=== PATIENT | male | born 1970 | race Caucasian/White ===

== ENCOUNTER 2021-08-05 12:22 | Inpatient (IN) | payer MEDICAID ==
[2021-08-05] VITALS (11 sets, daily range): BP systolic 86–151
[~2021-08-05] VITALS: Ht 165.1 cm; Wt 57.2 kg
--- NOTE | 2021-08-05 12:25 | NUR ---
Placed in room 06 . Placed on mineral wool insulation supervisor, blood pressure machine and pulse oximeter. To gown for exam. Side rails up.
--- NOTE | 2021-08-05 12:28 | NUR ---
ER at bedside examining patient.
--- NOTE | 2021-08-05 12:30 | NUR ---
RT at bedside.
--- NOTE | 2021-08-05 12:43 | NUR ---
Chest X-Ray being done at bedside.
[2021-08-05] MEDS ORDERED: LORazepam 2 MG/ML VIAL IM ONE (12:45)
--- NOTE | 2021-08-05 12:56 | NUR ---
Ativan 1mg given IM left deltoid using aseptic technique. Pt is restless and agitated moving arms.
--- NOTE | 2021-08-05 13:21 | NUR ---
Covid swab and MRSA swab sent to lab.
--- NOTE | 2021-08-05 13:22 | NUR ---
# 24 gauge angiocath placed to left hand. Use of asceptic technique. Opsite placed over site. Blood return noted. Blood for lab drawn from site. Flushed with 10 cc of normal saline. No evidence of infiltration noted. Patient tolerated well.
--- NOTE | 2021-08-05 13:29 | NUR ---
Pt still restless and agitated. 2mg IV ativan given. 5ml NS flushed. No infiltration noted.
[2021-08-05] MEDS ORDERED: LORazepam 2 MG/ML VIAL IVP ONE (13:30)
[2021-08-05 13:31] LABS: BASOPHILS % (AUTO) 0.2 % (0.0-2.0); EOSINOPHILS % (AUTO) 0.3 % (0.0-4.0); HEMATOCRIT 33.1 % (36-54); HEMOGLOBIN 10.9 g/dL (14.0-18.0); LYMPHOCYTES # (AUTO) 0.6 K/uL (1.0-5.5); LYMPHOCYTES % (AUTO) 3.5 % (20.5-51.5); MEAN CORPUSCULAR HEMOGLOBIN 29 pg (27-31); MEAN CORPUSCULAR HGB CONC 33 % (32-36); MEAN CORPUSCULAR VOLUME 89 fL (79.0-98.0); MONOCYTES # (AUTO) 1.3 K/uL (0.0-1.0); MONOCYTES % (AUTO) 7.6 % (1.7-9.3); NEUTROPHILS # (AUTO) 15.1 K/uL (1.8-7.7); NEUTROPHILS % (AUTO) 88.4 % (40.0-70.0); PLATELET COUNT (AUTO) 470 K/uL (130-430); RED BLOOD CELL COUNT(AUTO) 3.73 MIL/uL (4.2-6.2); RED CELL DISTRIBUTION WIDTH 21.5 % (9.0-15.0); WHITE BLOOD COUNT (AUTO) 17.1 K/uL (4.8-10.8)
--- NOTE | 2021-08-05 13:39 | NUR ---
EKG performed at BS. Physician given copy of EKG for review.
[2021-08-05] MEDS ORDERED: VANCOMYCIN HCL 1,000 MG in NS 250 ML IV ONE (13:45)
[2021-08-05] MEDS ORDERED: PIPERACILLIN/TAZO 3.375 GM in NS 50 ML IV ONE (13:45)
[2021-08-05 13:53] LABS: ANION GAP 8 (5-15); CALCIUM 8.7 mg/dL (8.4-11.0); CHLORIDE 96 mmol/L (98-107); CREATININE 1.16 mg/dL (0.55-1.30); GLUCOSE 147 mg/dL (70-99); POTASSIUM 4.8 mmol/L (3.5-5.1); SODIUM SERUM 135 mmol/L (136-145); UREA NITROGEN, BLOOD 36 mg/dL (8-21)
[2021-08-05 13:56] LABS: GFR AFRICAN AMERICAN 86 mL/min (>90)
[2021-08-05] MEDS ORDERED: HEPA500015 SUBCUT (13:56)
[2021-08-05] MEDS ORDERED: ASCO500T20 GT (13:56)
[2021-08-05] MEDS ORDERED: POLY17PO44 PO (13:56)
[2021-08-05] MEDS ORDERED: DOCU-144 GT (13:56)
[2021-08-05] MEDS ORDERED: ONDA4TAB55 PO (13:56)
[2021-08-05] MEDS ORDERED: MIDO5TAB4 GT (13:56)
[2021-08-05] MEDS ORDERED: LANS30CA53 GT (13:56)
[2021-08-05] MEDS ORDERED: ACET325T53 GT (13:56)
[2021-08-05] MEDS ORDERED: SER25 GT (13:56)
[2021-08-05] MEDS ORDERED: LORA-258 GT (13:56)
[2021-08-05] MEDS ORDERED: PHEN60TA11 GT (13:56)
--- NOTE | 2021-08-05 13:56 | NUR ---
Medication reconciliation completed with information provided by snf. Any prior medication reconciliation on file was reviewed and corrected.
[2021-08-05 13:59] LABS: ALANINE AMINOTRANSFERASE 57 U/L (12-78); ALBUMIN 2.9 g/dL (3.4-4.8); ASPARTATE AMINOTRANSFERASE 52 U/L (10-37); TOTAL BILIRUBIN 0.2 mg/dL (0.0-1.0)
[2021-08-05] MEDS ORDERED: PIPERACILLIN/TAZOBACTAM 3.375 GM/VIAL (ZOSYN) IV ONE (13:59)
[2021-08-05] MEDS ORDERED: VANCOMYCIN HCL 1000 MG/VIAL IV ONE (13:59)
[2021-08-05] MEDS ORDERED: NACL 0.9% 2,000 ML IV ONE (15:00)
--- NOTE | 2021-08-05 15:14 | NUR ---
Urine collected and sent to lab.
--- NOTE | 2021-08-05 15:22 | NUR ---
Admit bed requested Patient will be admitted to care of . Admitted to ICU unit. Diagnosis Sepsis Inpatient (Yes or No) Yes Observation (Yes or No) No Orientation concerns or request close to nursing station (Yes or No) No Covid Status Negative On vent or bipap Yes Isolation requirements No Needs a sitter No From Home (Yes or if No enter name of facility) No. [facility] Requires Dialysis (Yes or No) No Med Rec Completed (Yes of No) Yes
[2021-08-05 15:32] LABS: BILIRUBIN,URINE NEGATIVE (NEGATIVE); BLOOD, URINE 3+ (NEGATIVE); COLOR,URINE YELLOW (YELLOW); GLUCOSE,URINE NEGATIVE (NEGATIVE); KETONES,URINE NEGATIVE (NEGATIVE); LEUKOCYTE ESTERASE ,URINE 3+ (NEGATIVE); NITRITE, URINE POSITIVE (NEGATIVE); PH,URINE 8.5 (5.0-8.0); PROTEIN URINE 2+ (NEGATIVE); UROBILINOGEN,URINE 0.2 (0.2-1.0)
[2021-08-05 15:40] LABS: CLARITY/URINE HAZY (CLEAR)
[2021-08-05 15:46] LABS: BACTERIA,URINE MODERATE /HPF (None Seen); RBC,URINE 50-80 /HPF (0-3); TRIPLE PHOSPHATE CRYSTAL,UR 0-10 /HPF (None Seen); WBC,URINE >100 /HPF (0-3)
[2021-08-05 15:47] LABS: MUCUS,URINE None Seen /LPF (None Seen)
--- NOTE | 2021-08-05 17:47 | NUR ---
PT admitted to ICU room 8 from ER bedside report received from Kate RN, pt eyes open but unable to follow command moves upper extremities, but lower extremities contacted, chronic peg, trach oxygenation vent to trach, non verbal, PRVC RATE 12 TV 400, PEEP 6 FIO2 60% shortness fo breadth noted PEG clamped linda to gravity cloudy yellow urine will continue to monitor and treat as per care plan.
--- NOTE | 2021-08-05 17:53 | NUR ---
Patient will be admitted to care of Dr. Morris. Admitted to ICU unit. Will go to room 8. Belongings list completed. Complete and up to date summary report printed. SBAR report to be given at bedside with opportunity for questions.
[2021-08-05] MEDS: PIPERACILLIN/TAZO 3.375/DEX-IS 50 ML IV SCH ×2 (18:00→23:58)
--- NOTE | 2021-08-05 19:15 | NUR ---
@1802 pt hard stick for IV access attempted 4 times by different RN so order received from Dr Morris and telephone consent received from pt's family LUCA URIAS witnessed by two RNS, And if there is no available PICC line RN to call Dr VERNON to insert central line
--- NOTE | 2021-08-05 19:15 | NUR ---
Change of shift report at the bedside to Bret RN mentioned to him several efforts to place IV access but unsuccessful Dr Parikh aware order received as at this time pt's vitals stable, awake tolerating oxygenation via trach to ventilator well O2 sat 100% no agitation multiple wounds no picture taken yet and Bret RN verbalized understanding and will follow up
--- NOTE | 2021-08-05 19:30 | NUR ---
Opening note Received report and assumed care. Vent to trach in place tolerating settings AC 12 TV 400 fio2 60% peep 6+. No signs of respiratory distress but noted patient awake and restless. Attempting to grab vent tubes; generalized weakness noted and contraction of BL LE noted. Requires total assist for turning. Able to track and make eye contact. Occasional cough noted requiring endotracheal suction. no IV access noted and previous attempts to place line unsuccessful. will continue to monitor.
--- NOTE | 2021-08-05 21:35 | NUR ---
new attempt to place IV line unsuccessful. Attempts x3. Notification from nursing supervisor spring up received that Abel Picc line nurse will make attempt to place picc line when available kayce.
--- NOTE | 2021-08-05 21:45 | NUR ---
CONSULTATION PAGED/CALLED Reason for Consultation: SEPSIS Person Who was Notified: JOSE Consulting Physician: DR. Bj VILA Maternal Fetal Physician Specialty: ID Ordering Physician: DR. CLARK Reason for Consultation: SEPSIS Person Who was Notified: JOSE Consulting Physician: DR. RILEY Maternal Fetal Physician Specialty: PULMONOLOGY Ordering Physician: DR. CLARK
--- NOTE | 2021-08-05 22:02 | NUR ---
DR. Bj VILA MD CALLED BACK REGARDING PT CONSULT AT THIS TIME. MD MADE AWARE THAT WE ARE UNABLE TO GAIN IV ACCESS AT THIS TIME AND ARE WAITING ON PICC LINE NURSE FOR ACCESS. PER MD CHANGE IV ANTIBIOTICS TO LEVAQUIN 500 MG PO DAILY AND ZYVOX 600 MG PO Q12H UNTIL ACCESS IS OBTAINED. WILL CARRY OUT ORDERED.
[2021-08-05] MEDS ORDERED: levoFLOXacin 500 MG TABLET PO SCH (22:15)
[2021-08-05] MEDS ORDERED: levoFLOXacin 250 MG TABLET ONE (23:38)
[2021-08-05] MEDS ORDERED: LINEZOLID 600 MG TABLET ONE (23:39)
[2021-08-05] MEDS: LINEZOLID 600 MG TABLET PO SCH (23:58)
[2021-08-06] VITALS (34 sets, daily range): BP systolic 85–106
--- NOTE | 2021-08-06 02:00 | NUR ---
Abel Picc line nurse at bedside for Picc line placement. Consent verified and time out completed.
[2021-08-06] MEDS: VANCOMYCIN HCL 750 MG in NS 250 ML IV SCH ×2 (05:42→14:02)
[2021-08-06] MEDS: PIPERACILLIN/TAZO 3.375/DEX-IS 50 ML IV SCH ×4 (06:51→23:49)
--- NOTE | 2021-08-06 07:30 | NUR ---
RT NOTES 0730 Increased rate to 16 per MD Umesh murillo in 1 hour. Titrated fio2 to 50%. will monitor pt.
[2021-08-06] MEDS: PANTOPRAZOLE SODIUM 40 MG/VIAL (PROTONIX) IVP SCH (09:19)
[2021-08-06] MEDS: LINEZOLID 600 MG TABLET PO SCH (09:19)
[2021-08-06 09:42] LABS: CALCIUM 8.4 mg/dL (8.4-11.0); CREATININE 0.85 mg/dL (0.55-1.30); POTASSIUM 3.9 mmol/L (3.5-5.1)
[2021-08-06 09:45] LABS: INR 1.1 (0.80-1.20); PROTHROMBIN TIME 11.9 SECS (9.5-12.5)
[2021-08-06 09:49] LABS: ALBUMIN 2.3 g/dL (3.4-4.8); TOTAL BILIRUBIN 0.2 mg/dL (0.0-1.0)
--- NOTE | 2021-08-06 09:49 | NUR ---
Dietitian Recommendations * Vital AF 1.2 at 55 ml/hr (goal rate), Umer BID, Free Water Flush: 150 ml Q6h via GT Provides: 1764 kcal/day, 104 gm protein/day, and 1671 ml free water/day Meets: 112% of estimated caloric needs, 90% of upper end of estimated protein needs, and 104% of estimated fluid needs LP, RD Please refer to Nutrition Assessment for details. Addendum: 08/06/21 at [address] Amended: Links added.
[2021-08-06 09:50] LABS: BASOPHILS % (AUTO) 0.2 % (0.0-2.0); EOSINOPHILS # (AUTO) 0.2 K/uL (0.0-0.4); EOSINOPHILS % (AUTO) 1.8 % (0.0-4.0); HEMATOCRIT 27.2 % (36-54); HEMOGLOBIN 9.1 g/dL (14.0-18.0); LYMPHOCYTES # (AUTO) 0.6 K/uL (1.0-5.5); LYMPHOCYTES % (AUTO) 6.6 % (20.5-51.5); MEAN CORPUSCULAR HEMOGLOBIN 30 pg (27-31); MEAN CORPUSCULAR HGB CONC 33 % (32-36); MEAN CORPUSCULAR VOLUME 89 fL (79.0-98.0); MONOCYTES % (AUTO) 10.1 % (1.7-9.3); NEUTROPHILS # (AUTO) 7.8 K/uL (1.8-7.7); NEUTROPHILS % (AUTO) 81.3 % (40.0-70.0); PLATELET COUNT (AUTO) 323 K/uL (130-430); RED BLOOD CELL COUNT(AUTO) 3.07 MIL/uL (4.2-6.2); RED CELL DISTRIBUTION WIDTH 21.8 % (9.0-15.0); WHITE BLOOD COUNT (AUTO) 9.6 K/uL (4.8-10.8)
--- NOTE | 2021-08-06 09:56 | NUR ---
PT WITH BP 88/[address] CLARK TO UPDATE AND ORDERS FOR BOLUS AND MAINTENANCE IVF. WAITING FOR CALL BACK. CONT ON VENTILATOR AC 50/6/16/400 WITH O2 SAT 100%. RR 18-20, PT BREATHING OVER THE VENT. ABG WITH CO2 69.8 AND RT CHANGE VENT SETTING FOR RR 12 TO 16. PT ALREADY BREATHING OVER VENT. PAGED DR. RILEY BUT NO CALL BACK SO FAR. REPAGED DR. RILEY, WAITING FOR CALL BACK.
--- NOTE | 2021-08-06 10:10 | NUR ---
SPOKE WITH DR. RILEY, UPDATED ON PT STATUS. NEW ORDER TO INCREASE TV TO 450. WILL NOTIFY RT.
--- NOTE | 2021-08-06 10:20 | NUR ---
rt notes 1020 Per ABG results, Dr. Calvo ordered VT increased to 450ml and decreased fio2 to 40%, carried out by CYNDI Delacruz.
--- NOTE | 2021-08-06 10:39 | NUR ---
H&P SHOWED PT ON MIDODRINE. PT BP 97/67 MAP79. NO CALL BACK YET BY DR. CLARK. PT WITH PROB HX OF HYPOTENSION BEING ON MIDODRINE. PT'S MAP STABLE AT THIS TIME. WILL PAGE DR. CLARK AGAIN.
--- NOTE | 2021-08-06 11:16 | NUR ---
RT NOTES 1116 TITRATED FIO2 TO 30%. WILL MONITOR PT.
[2021-08-06] MEDS: NACL 0.9% 1,000 ML IV SCH (14:03)
[2021-08-06] MEDS: MIDODRINE HCL 5 MG TABLET (PROAMATINE) GT SCH ×2 (15:00→22:09)
--- NOTE | 2021-08-06 17:40 | NUR ---
PT TOLERATING TUBE FEEDING AT 55ML/HR WITH NO RESIDUAL.
[2021-08-06] MEDS ORDERED: levoFLOXacin 500 MG TABLET PO SCH (21:00)
[2021-08-06] MEDS: PHENobarbital 30 MG TABLET GT SCH (22:09)
[2021-08-06] MEDS: DOCUSATE SODIUM 100 MG CAPSULE PO SCH (22:10)
[2021-08-06] MEDS: QUEtiapine FUMARATE 25 MG TABLET GT SCH (22:10)
[2021-08-06] MEDS: POLYETHYLENE GLYCOL 3350, 17 GM/ POWD.PACK PO SCH (22:11)
[2021-08-06] MEDS: HEPARIN SODIUM,PORCINE 5,000 UNITS/ML VIAL SUBCUT SCH (22:13)
[2021-08-07] VITALS (36 sets, daily range): BP systolic 83–132
[2021-08-07] MEDS: VANCOMYCIN HCL 750 MG in NS 250 ML IV SCH ×2 (04:31→15:54)
[2021-08-07] MEDS: NACL 0.9% 1,000 ML IV SCH ×2 (05:23→22:38)
[2021-08-07] MEDS: PIPERACILLIN/TAZO 3.375/DEX-IS 50 ML IV SCH ×4 (06:11→23:16)
[2021-08-07] MEDS: LANSOPRAZOLE 30 MG CAPSULE.DR GT SCH (06:11)
[2021-08-07 06:58] LABS: BASOPHILS % (AUTO) 0.1 % (0.0-2.0); EOSINOPHILS # (AUTO) 0.5 K/uL (0.0-0.4); EOSINOPHILS % (AUTO) 6.9 % (0.0-4.0); HEMATOCRIT 25.7 % (36-54); HEMOGLOBIN 8.4 g/dL (14.0-18.0); LYMPHOCYTES # (AUTO) 0.8 K/uL (1.0-5.5); LYMPHOCYTES % (AUTO) 11.6 % (20.5-51.5); MEAN CORPUSCULAR HEMOGLOBIN 29 pg (27-31); MEAN CORPUSCULAR HGB CONC 33 % (32-36); MEAN CORPUSCULAR VOLUME 89 fL (79.0-98.0); MONOCYTES # (AUTO) 0.8 K/uL (0.0-1.0); MONOCYTES % (AUTO) 11.5 % (1.7-9.3); NEUTROPHILS % (AUTO) 69.9 % (40.0-70.0); PLATELET COUNT (AUTO) 298 K/uL (130-430); RED BLOOD CELL COUNT(AUTO) 2.88 MIL/uL (4.2-6.2); RED CELL DISTRIBUTION WIDTH 21.1 % (9.0-15.0); WHITE BLOOD COUNT (AUTO) 7.1 K/uL (4.8-10.8)
--- NOTE | 2021-08-07 07:30 | NUR ---
RECEIVED PT FROM CYNDI FERRERA. ASSUMED ALL CARE.
[2021-08-07 07:32] LABS: CALCIUM 8.4 mg/dL (8.4-11.0); CREATININE 0.71 mg/dL (0.55-1.30); POTASSIUM 3.3 mmol/L (3.5-5.1)
[2021-08-07] MEDS: MICAFUNGIN SODIUM 100 MG in NS 100 ML IV SCH (10:32)
[2021-08-07] MEDS: PANTOPRAZOLE SODIUM 40 MG/VIAL (PROTONIX) IVP SCH (10:32)
[2021-08-07] MEDS: DOCUSATE SODIUM 100 MG CAPSULE PO SCH ×2 (10:33→20:20)
[2021-08-07] MEDS: QUEtiapine FUMARATE 25 MG TABLET GT SCH ×2 (10:33→20:20)
[2021-08-07] MEDS: PHENobarbital 30 MG TABLET GT SCH ×2 (10:34→20:20)
[2021-08-07] MEDS: MIDODRINE HCL 5 MG TABLET (PROAMATINE) GT SCH ×3 (10:35→20:20)
[2021-08-07] MEDS: POLYETHYLENE GLYCOL 3350, 17 GM/ POWD.PACK PO SCH ×2 (10:36→20:20)
[2021-08-07] MEDS: HEPARIN SODIUM,PORCINE 5,000 UNITS/ML VIAL SUBCUT SCH ×2 (10:36→20:24)
[2021-08-07] MEDS ORDERED: NALOXONE HCL 0.4 MG/ML AMP (NARCAN) IVP PRN (14:00)
[2021-08-07] MEDS ORDERED: KCL 20 mEq in 100 mL (PREMIX) 100 ML IV ONE (14:00)
--- NOTE | 2021-08-07 14:00 | NUR ---
REPORTED TO DR. CLARK, PT HR IN 120S AND APPEARS UNCOMFORTABLE, K+= 3.3. RECEIVED ORDER FOR MORPHINE 1MG IVP Q PRN, KCL 20MEQ IV X1 NOW. ORDERS CARRIED OUT.
[2021-08-07] MEDS: MORPHINE 2 MG/ML INJ. SYRINGE IVP PRN (14:46)
--- NOTE | 2021-08-07 15:43 | NUR ---
PAGED DR. VILA TO REPORT BLOOD CX AND URINE CX RESULTS, AWAITING CALL BACK.
--- NOTE | 2021-08-07 16:29 | NUR ---
REPORTED TO DR. VILA PT'S BLOOD CX POSITIVE GM - RODS, URINE CX POSITIVE PROTEUS MIRABILIS MDRO SENTIVE TO ZOSYN. DR. VILA STATED OKAY PT IS ON ZOSYN, NNOS.
--- NOTE | 2021-08-07 16:30 | NUR ---
MORPHINE 1MG IVP GIVEN FOR PAIN, KCL IVPB GIVEN FOR k= 3.3.
--- NOTE | 2021-08-07 19:15 | NUR ---
OPENING NOTES: RECEIVED BEDSIDE REPORT FROM ANDERSON, PATIENT IS AWAKE AND MOVING AROUND. PATIENT CAME FROM [facility] WITH ACUTE HYPOXIA WITH VENT PROBLEMS. PATIENT HAS SKIN ISSUES, TORN PENIS FROM ODOM, LEFT AND RIGHT HIP, AND SACRAL WOUNDS, COVERED WITH FOAM DRESSINGS, HAVE A WOUND CONSULT IN BUT NO ONE HAS COME. PATIENT IS CONTRACTED. PATIENT HAS A G-TUBE WITH VITAL AF 1.2, WITH FWF 150 Q6. TRACH TO VENT 16, 450, 30%, 6. PATIENT HAS A ODOM THIS IS DRAINING TO GRAVITY. PATIENT HAS A NHI MIDLINE THAT HAS NS RUNNING AT 160. BED IS AT THE LOWEST LEVEL, BRAKES ARE LOCKED, CALL LIGHT IS WITHIN REACH, APPROPRIATE SIDE RAILS UP, AND SUCTION WORKING.
--- NOTE | 2021-08-07 19:35 | NUR ---
ENDORSED ALL CARE TO CYNDI WEAVER, ALL QUESTIONS AND CONCERNS ADDRESSED.
[2021-08-08] VITALS (35 sets, daily range): BP systolic 89–147
[2021-08-08] MEDS: VANCOMYCIN HCL 750 MG in NS 250 ML IV SCH ×2 (02:54→14:22)
[2021-08-08] MEDS: PIPERACILLIN/TAZO 3.375/DEX-IS 50 ML IV SCH ×4 (05:08→23:58)
[2021-08-08] MEDS: MICAFUNGIN SODIUM 100 MG in NS 100 ML IV SCH (06:35)
[2021-08-08] MEDS: LANSOPRAZOLE 30 MG CAPSULE.DR GT SCH (06:35)
[2021-08-08 06:52] LABS: BASOPHILS % (AUTO) 0.3 % (0.0-2.0); EOSINOPHILS # (AUTO) 0.5 K/uL (0.0-0.4); EOSINOPHILS % (AUTO) 10.5 % (0.0-4.0); HEMATOCRIT 24.6 % (36-54); LYMPHOCYTES # (AUTO) 0.9 K/uL (1.0-5.5); LYMPHOCYTES % (AUTO) 17.6 % (20.5-51.5); MEAN CORPUSCULAR HEMOGLOBIN 29 pg (27-31); MEAN CORPUSCULAR HGB CONC 33 % (32-36); MEAN CORPUSCULAR VOLUME 89 fL (79.0-98.0); MONOCYTES # (AUTO) 0.5 K/uL (0.0-1.0); MONOCYTES % (AUTO) 9.3 % (1.7-9.3); NEUTROPHILS # (AUTO) 3.2 K/uL (1.8-7.7); NEUTROPHILS % (AUTO) 62.3 % (40.0-70.0); PLATELET COUNT (AUTO) 334 K/uL (130-430); RED BLOOD CELL COUNT(AUTO) 2.77 MIL/uL (4.2-6.2); RED CELL DISTRIBUTION WIDTH 21.2 % (9.0-15.0); WHITE BLOOD COUNT (AUTO) 5.1 K/uL (4.8-10.8)
[2021-08-08 06:55] LABS: ALBUMIN 2.1 g/dL (3.4-4.8); CALCIUM 8.1 mg/dL (8.4-11.0); CREATININE 0.67 mg/dL (0.55-1.30); POTASSIUM 3.3 mmol/L (3.5-5.1); TOTAL BILIRUBIN 0.1 mg/dL (0.0-1.0)
--- NOTE | 2021-08-08 07:15 | NUR ---
RECEIVED PT FROM CYNDI WEAVER. ASSUMED ALL CARE. PT IS AAOX2, ATTEMPTING TO COMMUNICATE, PULLING AT COLOSTOMY BAG AND TRACH. PT EDUCATED AT THE RISKS OF PULLING AT MEDICAL EQUIPMENT, PT NODDED HEAD TO ACKNOWLEDGE UNDERSTANDING. TELEMONITOR IN PLACE READING SINUS TACH HR 107. PT DENIES PAIN. TRACH IN TO VENT, SETTING AC RR 16, TV 450, PEEP 6 FIO2 30%. RESP E/U. LUNG SOUNDS CTA, O2 SAT 100%. ABDOMEN SOFT, DISTENDED. BOWEL SOUNDS ACTIVE X4 QUADS. GTUBE IN PLACE WITH VITAL AF 1.2 RUNNING AT 55ML/HOUR. ASPIRATION PRECAUTIONS IN PLACE. PT HAS COLOSTOMY SITE TO L ABDOMEN, DRAINING WATERY BROWN STOOL, STOMA BEEFY RED. ODOM CATH IN PLACE DRAINING CLEAR YELLOW URINE TO GRAVITY, STAT LOCK TO LEFT THIGH. NHI PICC LINE IN PLACE 2 LUMENS FLUSHED PATENT WITH NS RUNNING AT 60ML/HOUR. SITE WNL, DRESSING CDI.
[2021-08-08] MEDS: POLYETHYLENE GLYCOL 3350, 17 GM/ POWD.PACK PO SCH ×2 (09:04→20:18)
[2021-08-08] MEDS: QUEtiapine FUMARATE 25 MG TABLET GT SCH ×2 (09:05→20:18)
[2021-08-08] MEDS: DOCUSATE SODIUM 100 MG CAPSULE PO SCH ×2 (09:05→20:06)
[2021-08-08] MEDS: PANTOPRAZOLE SODIUM 40 MG/VIAL (PROTONIX) IVP SCH (09:05)
[2021-08-08] MEDS: PHENobarbital 30 MG TABLET GT SCH ×2 (09:05→20:18)
[2021-08-08] MEDS: HEPARIN SODIUM,PORCINE 5,000 UNITS/ML VIAL SUBCUT SCH ×2 (09:07→20:19)
[2021-08-08] MEDS: MIDODRINE HCL 5 MG TABLET (PROAMATINE) GT SCH ×3 (09:15→20:06)
[2021-08-08] MEDS: NACL 0.9% 1,000 ML IV SCH (14:23)
[2021-08-08] MEDS ORDERED: KCL 20 mEq in 100 mL (PREMIX) 100 ML IV ONE (18:30)
--- NOTE | 2021-08-08 19:05 | NUR ---
OPENING NOTES: RECEIVED BEDSIDE REPORT FROM ANDERSON, PATIENT IS AWAKE AND MOVING AROUND. PATIENT CAME FROM [facility] WITH ACUTE HYPOXIA WITH VENT PROBLEMS. PATIENT HAS SKIN ISSUES, TORN PENIS FROM ODOM, LEFT AND RIGHT HIP, AND SACRAL WOUNDS, COVERED WITH FOAM DRESSINGS BY ANDERSON AT 1500, HAVE A WOUND CONSULT IN BUT NO ONE HAS COME. PATIENT IS CONTRACTED. PATIENT HAS A G-TUBE WITH VITAL AF 1.2, WITH FWF 150 Q6. TRACH TO VENT 16, 450, 30%, 6. PATIENT HAS A ODOM THIS IS DRAINING TO GRAVITY. PATIENT HAS A NHI MIDLINE THAT HAS NS RUNNING AT 160. BED IS AT THE LOWEST LEVEL, BRAKES ARE LOCKED, CALL LIGHT IS WITHIN REACH, APPROPRIATE SIDE RAILS UP, AND SUCTION WORKING.
--- NOTE | 2021-08-08 19:27 | NUR ---
ENDORSED ALL CARE TO CYNDI WEAVER. ALL QUESTIONS AND CONCERNS ADDRESSED.
--- NOTE | 2021-08-08 19:30 | NUR ---
PATIENT IS AGITATED, TURNING RED, MOVING ALL OVER THE PLACE, CRYING AND GRIMACING. ANDERSON AND Margarita GAVE THE PATIENT PRN MORPHINE FOR PAIN.
[2021-08-08] MEDS: MORPHINE 2 MG/ML INJ. SYRINGE IVP PRN (19:46)
[2021-08-09] VITALS (35 sets, daily range): BP systolic 100–156
[2021-08-09] MEDS: ALPRAZolam 0.25 MG TABLET GT PRN (00:06)
[2021-08-09] MEDS: LANSOPRAZOLE 30 MG CAPSULE.DR GT SCH (06:06)
[2021-08-09] MEDS: PIPERACILLIN/TAZO 3.375/DEX-IS 50 ML IV SCH ×3 (06:06→18:43)
[2021-08-09 06:11] LABS: BASOPHILS % (AUTO) 0.5 % (0.0-2.0); EOSINOPHILS # (AUTO) 0.2 K/uL (0.0-0.4); EOSINOPHILS % (AUTO) 3.6 % (0.0-4.0); HEMATOCRIT 24.8 % (36-54); HEMOGLOBIN 8.1 g/dL (14.0-18.0); LYMPHOCYTES # (AUTO) 1.2 K/uL (1.0-5.5); LYMPHOCYTES % (AUTO) 21.4 % (20.5-51.5); MEAN CORPUSCULAR HEMOGLOBIN 29 pg (27-31); MEAN CORPUSCULAR HGB CONC 33 % (32-36); MEAN CORPUSCULAR VOLUME 89 fL (79.0-98.0); MONOCYTES # (AUTO) 0.6 K/uL (0.0-1.0); MONOCYTES % (AUTO) 11.1 % (1.7-9.3); NEUTROPHILS # (AUTO) 3.5 K/uL (1.8-7.7); NEUTROPHILS % (AUTO) 63.4 % (40.0-70.0); PLATELET COUNT (AUTO) 324 K/uL (130-430); RED CELL DISTRIBUTION WIDTH 20.8 % (9.0-15.0); WHITE BLOOD COUNT (AUTO) 5.5 K/uL (4.8-10.8)
[2021-08-09 06:32] LABS: ALBUMIN 2.2 g/dL (3.4-4.8); CALCIUM 8.6 mg/dL (8.4-11.0); CREATININE 0.65 mg/dL (0.55-1.30); POTASSIUM 3.8 mmol/L (3.5-5.1); TOTAL BILIRUBIN 0.3 mg/dL (0.0-1.0)
[2021-08-09] MEDS: NACL 0.9% 1,000 ML IV SCH (08:25)
[2021-08-09] MEDS: PANTOPRAZOLE SODIUM 40 MG/VIAL (PROTONIX) IVP SCH (08:46)
[2021-08-09] MEDS: MIDODRINE HCL 5 MG TABLET (PROAMATINE) GT SCH ×3 (08:49→20:46)
[2021-08-09] MEDS: HEPARIN SODIUM,PORCINE 5,000 UNITS/ML VIAL SUBCUT SCH ×2 (08:49→20:49)
[2021-08-09] MEDS: QUEtiapine FUMARATE 25 MG TABLET GT SCH ×2 (08:49→20:46)
[2021-08-09] MEDS: DOCUSATE SODIUM 100 MG CAPSULE PO SCH ×2 (08:49→20:46)
[2021-08-09] MEDS: PHENobarbital 30 MG TABLET GT SCH ×2 (08:50→20:46)
[2021-08-09] MEDS: POLYETHYLENE GLYCOL 3350, 17 GM/ POWD.PACK PO SCH ×2 (08:50→20:47)
--- NOTE | 2021-08-09 14:50 | NUR ---
Nutritional F/U Admitting Diagnosis Sepsis Reviewed Pertinent Medical/Surgical Hx Medical Record Patient Other Medical History Comment: PMH: chronic respiratory failure and vent dependent s/p trach, CKD, [employer] coccidiomycosis, DM, epilepsy, osteomyelitis, s/p cardiac pacemaker, + colostomy bag, aphasia, WHEEL BRAIDER shunt, s/p PEG, per physician notes. SARS-CoV-2 Ag (Rapid) Negative 08/[address] attended ICU rounds this AM. Per primary RN, pt is tolerating TF, continues vent to trach; pt is difficult to turn d/t contractures, pt came in w/ multiple PIs as a result; pt also has a split in his penis d/t snf linda use. RD reminded RN to provide Umer as ordered. Per EMR review, Dylan score 10 - wounds to lower scrotum, distal penis, Lateral L. hip, Lateral R. hip; BLE non-pitting edema; abd is soft and non-distended w/ active bowel sounds; 100 ml stool output 08/06; TF formula Vital AF 1.2 08/09; TF rate 55 ml/hr via GT 08/09; GRV: 0-5 ml 08/09; vent to trach, Ve: 7.8; Tmax: 98.8F. Current TF is warranted and appropriate. Current Diet Order/Nutrition Support Vital AF at 55 ml/hr (goal rate), Umer BID, FWF 150 ml q6h x3 days Patient/Significant Other Unable To Verbalize Education Provided Not Indicated Pertinent Medications protonix, piperacillin/tazobactam, Seroquel, Miralax, heparin Pertinent Labs BUN 14 WNL, Cr 0.65 WNL, BG 78 WNL, Alb 2.2 L Height (Feet) 5 feet Height (Inches) 5.00 inches Weight (Pounds) 126 pounds - Stable since 08/06 Weight (Calculated Kilograms) 57.095618 kilograms Patient Weight 57.153 kg Body Mass Index 20.96 kg/m2 %IBW 93 [place]/Adjusted Body Weight 136#/61.8 kg Recent Weight Change Unable to verify Weight Status Appropriate Food Allergies Unable to verify Usual Diet At Home Fibersource HN at 70 cc/hr x20 hr (1400 cc/1680 kcal/day) Skin Integrity Comment: Dylan scale: 11 w/ wounds noted to lateral L/R hip and lower sacrum *MODIFIED Estimated Energy Expenditure (kcals/day) 1531 (PSU 2002b d/t criticall illness; Ve: 7.8, Tmax: 37.1'C) Estimated Protein Required (g/day) 86-115 (1.5-2 gm/kg CBW d/t sepsis, multiple wounds) Estimated Fluid Required (l/day) 1.6 (1 ml/kcal/day for maintenance) Problem/Etiology/Signs/Symptoms Increased nutritional needs R/T metabolic demands AEB estimated nutritional requirements for sepsis and wound healing. (*ongoing) Expected Outcomes/Goals - Monitor provision of EN support w/ goal of pt meeting >80% of estimated nutritional needs, labs trending WNL, normal GI function, and skin integrity/wt maintenance Dietitian Recommendations * Vital AF 1.2 at 55 ml/hr (goal rate), Umer BID, Free Water Flush: 150 ml Q6h via GT Provides: 1764 kcal/day, 104 gm protein/day, and 1671 ml free water/day Meets: 115% of estimated caloric needs, 90% of upper end of estimated protein needs, and 104% of estimated fluid needs Follow Up High Risk: F/U in 2-3days
--- NOTE | 2021-08-09 14:50 | NUR ---
Dietitian Recommendations * Vital AF 1.2 at 55 ml/hr (goal rate), Umer BID, Free Water Flush: 150 ml Q6h via GT Provides: 1764 kcal/day, 104 gm protein/day, and 1671 ml free water/day Meets: 115% of estimated caloric needs, 90% of upper end of estimated protein needs, and 104% of estimated fluid needs Please refer to Nutrition F/U for details.
--- NOTE | 2021-08-09 19:30 | NUR ---
PM shift Received report from AM nurse using SBAR approach.
[2021-08-10] VITALS (20 sets, daily range): BP systolic 106–153
--- NOTE | 2021-08-10 | NUR ---
Patient is resting in bed. NO signs or symptoms of distress.
--- NOTE | 2021-08-10 01:00 | NUR ---
MD Dr. Kulkarni came in to see patient. answered all questions.
[2021-08-10] MEDS: PIPERACILLIN/TAZO 3.375/DEX-IS 50 ML IV SCH ×4 (03:00→18:54)
[2021-08-10] MEDS: NACL 0.9% 1,000 ML IV SCH ×2 (03:01→18:54)
[2021-08-10] MEDS: LANSOPRAZOLE 30 MG CAPSULE.DR GT SCH (06:49)
[2021-08-10] MEDS: PANTOPRAZOLE SODIUM 40 MG/VIAL (PROTONIX) IVP SCH (08:10)
[2021-08-10] MEDS: MIDODRINE HCL 5 MG TABLET (PROAMATINE) GT SCH ×3 (08:10→20:27)
[2021-08-10] MEDS: POLYETHYLENE GLYCOL 3350, 17 GM/ POWD.PACK PO SCH ×2 (08:10→20:27)
[2021-08-10] MEDS: DOCUSATE SODIUM 100 MG CAPSULE PO SCH ×2 (08:10→21:00)
[2021-08-10] MEDS: QUEtiapine FUMARATE 25 MG TABLET GT SCH ×2 (08:10→20:27)
[2021-08-10] MEDS: PHENobarbital 30 MG TABLET GT SCH ×2 (08:11→20:27)
[2021-08-10] MEDS: HEPARIN SODIUM,PORCINE 5,000 UNITS/ML VIAL SUBCUT SCH ×2 (08:13→20:29)
--- NOTE | 2021-08-10 10:20 | NUR ---
CARE ENDORSED TO RN ARNEL FOR DOWNGRADE TO TELEMETRY. SBAR PROVIDED. ALL QUESTIONS ANSWERED. PT VSS. END OF CARE.
--- NOTE | 2021-08-10 10:21 | NUR ---
Received report from Sivakumar/ICU ER for continuity of care. Pt to transfer to room 123A.
--- NOTE | 2021-08-10 10:40 | NUR ---
RT NOTES 1040 Pt moved to 123A, pt still on same settings PRVC 16,450VT PEEP 6 30% FIO2. Shiley 7 XLT. no distress noted. no incident happend. sxn'd prior/post transfer.
--- NOTE | 2021-08-10 10:45 | NUR ---
Opening Notes Received patient via bed, stable at this time. Pt is awake, alert and oriented x0. Arousable to light stimuli, able to track with eyes, able to follow simple commands. Nonverbal. Mild SOB at rest. Pt remains on trach to vent (AC 16, FiO2 305, TV 450, PEEP 5), noted with yellow thick secretions, suctioned as needed. Oxygen noted at 98%. No signs of pain per FLACC scale. Pt is diaphoretic. BS taken, noted at 96 mg/dL. Temporal temp 97.8 F. MIDLINE noted on NHI, double lumen, C/D/I, blood return noted. NS @ 100 ml/hr, infusing well. PEGTUBE in place, dressing cleaned and changed, 5 ml of residual noted. TF: Vital AF 1.2 @ 55 ml/hr, infusing well. Colostomy bag on left lower abdomen, loose, brown stool. FC draining by gravity, yellow and clear, malodorous, sediments. Pt is also noted with a possible hernia. Will follow up with MD Morris. Soft wrist bilateral wrist restraints noted, no injury noted. No agitation at this time. Contact isolation. Pt is noted with BLE contractures. Pending wound care. All needs met at this time. Safety and fall precautions in place. Bed in lowest position, alarm on, locked. Will continue to monitor. Addendum: 08/10/21 at 1415 by Nemo Flynn RN no blood return noted on MIDLINE
--- NOTE | 2021-08-10 12:00 | NUR ---
Notes/Diaphoretic Patient is diaphoretic. VS WNL. Nurse s/w Dr. Morris and updated on pt status. Obtained new orders for STAT labs, noted and carried out. MD Morris to see patient during rounds for possible hernia. Mild SOB at rest, suctioned as needed. Pt remains on trach to vent (FiO2 30%, TV 450 PEEP 5 16 AC). No signs of pain per FLACC scale. Cooling measures provided. Will continue to monitor.
[2021-08-10] MEDS: ALPRAZolam 0.25 MG TABLET GT PRN (14:54)
[2021-08-10 15:49] LABS: BASOPHILS % (AUTO) 0.3 % (0.0-2.0); EOSINOPHILS # (AUTO) 1.2 K/uL (0.0-0.4); EOSINOPHILS % (AUTO) 11.9 % (0.0-4.0); HEMATOCRIT 31.4 % (36-54); HEMOGLOBIN 10.1 g/dL (14.0-18.0); LYMPHOCYTES # (AUTO) 2.2 K/uL (1.0-5.5); LYMPHOCYTES % (AUTO) 22.6 % (20.5-51.5); MEAN CORPUSCULAR HEMOGLOBIN 29 pg (27-31); MEAN CORPUSCULAR HGB CONC 32 % (32-36); MEAN CORPUSCULAR VOLUME 90 fL (79.0-98.0); MONOCYTES # (AUTO) 0.7 K/uL (0.0-1.0); MONOCYTES % (AUTO) 7.1 % (1.7-9.3); NEUTROPHILS # (AUTO) 5.8 K/uL (1.8-7.7); NEUTROPHILS % (AUTO) 58.1 % (40.0-70.0); PLATELET COUNT (AUTO) 426 K/uL (130-430); RED BLOOD CELL COUNT(AUTO) 3.51 MIL/uL (4.2-6.2); RED CELL DISTRIBUTION WIDTH 21.2 % (9.0-15.0); WHITE BLOOD COUNT (AUTO) 9.9 K/uL (4.8-10.8)
--- NOTE | 2021-08-10 16:00 | NUR ---
Notes Patient is awake, alert and oriented x1. Mild SOB at rest, suctioned as needed. Pt remains on trach to vent, tolerating well. No signs of pain per FLACC scale. Pt colostomy bag is leaking. Pericare provided, linens changed, partial bed bath given. Replaced colostomy bag, C/D/I. All needs met at this time. Ssfety and fall precautions in place. Bed in lowest position, alarm on, locked. Will continue to monitor.
[2021-08-10 16:03] LABS: ANION GAP 10 (5-15); CHLORIDE 104 mmol/L (98-107); GFR AFRICAN AMERICAN 154 mL/min (>90); GLUCOSE 124 mg/dL (70-99); POTASSIUM 3.8 mmol/L (3.5-5.1); SODIUM SERUM 141 mmol/L (136-145); UREA NITROGEN, BLOOD 10 mg/dL (8-21)
[2021-08-10 16:07] LABS: ALANINE AMINOTRANSFERASE 40 U/L (12-78); ALBUMIN 2.7 g/dL (3.4-4.8); ASPARTATE AMINOTRANSFERASE 25 U/L (10-37); C-REACTIVE PROTEIN QUANT 15.1 mg/dL (0-0.5); TOTAL BILIRUBIN < 0.1 mg/dL (0.0-1.0)
[2021-08-10 16:46] LABS: ERYTHROCYTE SEDIMENTATION RATE 95 MM/HR (0-15)
--- NOTE | 2021-08-10 18:55 | NUR ---
Closing Notes Patient is awake, alert and oriented x1. Arousable to light stimuli, able to track with eyes. Nonverbal. No diaphoresis at this time. Mild SOB at rest. Pt remains on trach to vent (AC mode 16, FiO2 30%, TV 450, PEEP 5), noted with thick yellow secretions, suctioned as needed. MID LINE noted on NHI, double lumen, NS @ 100 ml/hr, infusing well. PEGTUBE in place, TF: Vital AF 1.2 @ 55 ml/hr, infusing well. FWF 150 cc. FC draining by gravity, yellow and clear urine. Colostomy bag on LLQ, in place. Replaced dressing earlier in shift. Will endorse to next shift to complete wound care dressing. Contact isolation. All needs met at this time. Safety and fall precautions in place. Bed in lowest position, alarm on, locked. Will continue to monitor.
[2021-08-11] VITALS (9 sets, daily range): BP systolic 110–145
[2021-08-11] MEDS: PIPERACILLIN/TAZO 3.375/DEX-IS 50 ML IV SCH ×4 (00:21→17:26)
--- NOTE | 2021-08-11 02:30 | NUR ---
WOUND CARE Changed wound dressings to bilateral hip and sacral coccyx. Cleansed with NS, pat dry and applied dry dressing. Patient's colostomy was changed as well due to lose of integrity. Patient's needs met and left clean, stable and with no notable distress. Bed in lowest position with bed alarm on and restrains secured.
--- NOTE | 2021-08-11 06:33 | NUR ---
CLOSE NOTE Patient is awake, alert and oriented x1. Arousable to light stimuli, name, able to track with eyes. Nonverbal. No diaphoresis at this time. Patient remains on trach to vent (AC mode 16, FiO2 30%, TV 450, PEEP 6). MID LINE noted on NHI, double lumen, NS @ 60 ml/hr, infusing well. PEGTUBE in place, TF: Vital AF 1.2 @ 55 ml/hr, infusing well. FWF 150 cc. FC draining by gravity, yellow and clear urine. Colostomy bag on LLQ, in place. Wound dressing noted to be intact. Contact isolation due to ESBL of urine. All needs met at this time. Safety and fall precautions in place. Bed in lowest position, alarm on, locked. Will endorse to dayshift.
[2021-08-11 06:42] LABS: BASOPHILS % (AUTO) 0.3 % (0.0-2.0); EOSINOPHILS # (AUTO) 0.6 K/uL (0.0-0.4); HEMATOCRIT 23.6 % (36-54); HEMOGLOBIN 7.8 g/dL (14.0-18.0); LYMPHOCYTES # (AUTO) 1.4 K/uL (1.0-5.5); LYMPHOCYTES % (AUTO) 23.7 % (20.5-51.5); MEAN CORPUSCULAR HEMOGLOBIN 29 pg (27-31); MEAN CORPUSCULAR HGB CONC 33 % (32-36); MEAN CORPUSCULAR VOLUME 88 fL (79.0-98.0); MONOCYTES # (AUTO) 0.5 K/uL (0.0-1.0); MONOCYTES % (AUTO) 8.6 % (1.7-9.3); NEUTROPHILS # (AUTO) 3.3 K/uL (1.8-7.7); NEUTROPHILS % (AUTO) 56.4 % (40.0-70.0); PLATELET COUNT (AUTO) 315 K/uL (130-430); RED BLOOD CELL COUNT(AUTO) 2.68 MIL/uL (4.2-6.2); WHITE BLOOD COUNT (AUTO) 5.8 K/uL (4.8-10.8)
[2021-08-11 06:56] LABS: ALBUMIN 2.1 g/dL (3.4-4.8); CALCIUM 8.1 mg/dL (8.4-11.0); CREATININE 0.62 mg/dL (0.55-1.30); POTASSIUM 3.2 mmol/L (3.5-5.1); TOTAL BILIRUBIN 0.1 mg/dL (0.0-1.0)
--- NOTE | 2021-08-11 08:00 | NUR ---
Opening Note Patient is awake, alert and oriented x0. Arousable to light stimuli, able to track with eyes. Nonverbal. Soft wrist bilateral wrist restraints in place, no injury noted. Mild SOB at ret, HDEZ. Pt remains on trach to vent (AC mode FiO2 305 TV 450 PEEP 5). Suctioned as needed. Pt shows no signs of pain at this time. Afebrile. PICC line noted on NHI, double lumen, NS @ 60 ml/hr, infusing well. PEG TUBE in place, TF: Vital AF 1.2 @ 55 ml/hr, infusing well. 10 cc of residual noted. Colostomy bag in place, loose stool. FC draining by gravity, yellow and clear urine noted. Contact precautions. Pt was repositioned in bed with pillows. All needs met at this time. Safety and fall precautions in place. Bed in lowest position, alarm on, locked. Will continue to monitor.
[2021-08-11] MEDS: DOCUSATE SODIUM 100 MG CAPSULE PO SCH (08:35)
[2021-08-11] MEDS: QUEtiapine FUMARATE 25 MG TABLET GT SCH (08:35)
[2021-08-11] MEDS: PANTOPRAZOLE SODIUM 40 MG/VIAL (PROTONIX) IVP SCH (08:35)
[2021-08-11] MEDS: PHENobarbital 30 MG TABLET GT SCH (08:35)
[2021-08-11] MEDS: POLYETHYLENE GLYCOL 3350, 17 GM/ POWD.PACK PO SCH (08:35)
[2021-08-11] MEDS: MIDODRINE HCL 5 MG TABLET (PROAMATINE) GT SCH ×2 (08:35→14:42)
[2021-08-11] MEDS: HEPARIN SODIUM,PORCINE 5,000 UNITS/ML VIAL SUBCUT SCH (08:36)
[2021-08-11] MEDS: NACL 0.9% 1,000 ML IV SCH (08:37)
[2021-08-11] MEDS ORDERED: POTASSIUM CHLORIDE 20 MEQ TAB.PRT.SR PO ONE (09:15)
--- NOTE | 2021-08-11 12:00 | NUR ---
Notes Patient is asleep at this time. Mild SOB at rest. Pt remains on trach to vent. No signs of diaphoresis at this time. KCL 40 mEq given via PEGTUBE earlier in shift. No signs of pain per FLACC scale. IV ATB Zosyn infusing well. Will continue to monitor.
--- NOTE | 2021-08-11 12:43 | NUR ---
Discharge Planning: KAREEMP faxed pt referral to [facility] [phone] DCP spoke to Norma pt will go to Rm 122B. KAREEMP made CM aware.
[2021-08-11] MEDS ORDERED: ROCPM1 IV (14:23)
--- NOTE | 2021-08-11 15:30 | NUR ---
CM: PT HAS DISCHARGE ORDER TO SNF, HAS BEEN ACCEPTED AT [facility] RM# 122B, FAMILY NOTIFIED OF DISCHARGE, TRANSPORTATION WITH [facility] EST 1630P, NURSE RN ARNEL SALDANA, PACKET TAKEN TO THE FLOOR.
--- NOTE | 2021-08-11 16:00 | NUR ---
Notes Patient is sleeping at this time. Trach to vent, mild SOB. No signs of pain. Will continue to monitor.
--- NOTE | 2021-08-11 16:37 | NUR ---
Gave report to Roz/RN from [facility] for continuity of care. ETA medicinal plant picker at 1830. Pt to transfer to room 122B. Per Roz/RN no covid swab is needed at this time.
--- NOTE | 2021-08-11 18:37 | NUR ---
Closing Notes Patient is awake, alert and oriented x1. Mild SOB at rest. Pt remains on trach to vent (AC mode FiO2 30% TV 450 PEEP 5), suctioned x2. No signs of pain at this time. No diaphoresis noted. MIDLINE noted on NHI, double lumen, NS @ 80 ml/hr, infusing well. PEGTUBE in place, TF: Vital AF 1.2 @ 55 ml/hr, infusing well. Colostomy bag leaking, cleaned site and replaced place. Noted with loose stool, 300 cc. FC draining by gravity. Pending DC back to [facility]. DC wound photos taken. Contact precautions. All needs met at this time. Safety and fall precautions in place. Bed in lowest position, alarm on, locked. Will continue to monitor.
--- NOTE | 2021-08-11 20:20 | NUR ---
D/C Patient Patient discharged via [facility] to [facility]. Patient in stable condition, ID band removed. All belongings sent with patient.
== END 2021-08-11 20:20 | DRG 720 ==
LOC: SED 12:22 → SIC 14:43 → STU 08-10 09:59
PROVIDERS: ADMIT Internal Medicine; ATTEND Internal Medicine
PROC: 5A1955Z Respiratory Ventilation, Greater than 96 Consecutive Hours (ICD-10-PCS; principal; 2021-08-05)
PROC: 05HY33Z Insertion of Infusion Device into Upper Vein, Percutaneous Approach (ICD-10-PCS; 2021-08-06)
PROC: B54MZZA Ultrasonography of Right Upper Extremity Veins, Guidance (ICD-10-PCS; 2021-08-06)
DX: A41.9 Sepsis, unspecified organism (principal); J96.01 Acute respiratory failure with hypoxia; J15.1 Pneumonia due to Pseudomonas; J96.02 Acute respiratory failure with hypercapnia; R64 Cachexia; J95.00 Unspecified tracheostomy complication; E11.69 Type 2 diabetes mellitus with other specified complication; E11.22 Type 2 diabetes mellitus with diabetic chronic kidney disease; N39.0 Urinary tract infection, site not specified; G40.909 Epilepsy, unspecified, not intractable, without status epilepticus; R65.20 Severe sepsis without septic shock; Y83.8 Other surgical procedures as the cause of abnormal reaction of the patient, or of later complication, without mention of misadventure at the time of the procedure; Y82.8 Other medical devices associated with adverse incidents; Z20.822 Contact with and (suspected) exposure to COVID-19; R47.01 Aphasia; R13.10 Dysphagia, unspecified; L89.90 Pressure ulcer of unspecified site, unspecified stage; M86.9 Osteomyelitis, unspecified; I12.9 Hypertensive chronic kidney disease with stage 1 through stage 4 chronic kidney disease, or unspecified chronic kidney disease; N18.9 Chronic kidney disease, unspecified; Z87.01 Personal history of pneumonia (recurrent); Z99.11 Dependence on respirator [ventilator] status; Z79.01 Long term (current) use of anticoagulants; Z86.16 Personal history of COVID-19; Z91.19 Patient's noncompliance with other medical treatment and regimen; Y92.89 Other specified places as the place of occurrence of the external cause; Z95.0 Presence of cardiac pacemaker; Z98.2 Presence of cerebrospinal fluid drainage device; Z68.21 Body mass index [BMI] 21.0-21.9, adult
CPT/HCPCS: 36415; 36600; 71045; 80048; 80053; 80202; 81000; 82803-TC; 82962; 83605; 83880; 84484; 85025; 85610-TC; 85651-TC; 85730-TC; 86140; 87040; 87070-TC; 87081; 87086; 87205-TC; 93005; 94002; 94003; 94640; 96365; 96366; 96367; 99291; C9113; G0378; J1644; J2060; J2248; J2270; J2543; J3370; J3480; J7050

== ENCOUNTER 2022-03-07 21:04 | Inpatient (IN) | payer MEDICAID ==
[~2022-03-07] VITALS: Ht 175.3 cm; Wt 55.3 kg
[~2022-03-07 21:04] MED LIST: ACET325T53 GT; ASCO500T20 GT; DOCU-144 GT; HEPA500015 SUBCUT; LANS30CA53 GT; LORA-258 GT; MIDO5TAB4 GT; ONDA4TAB55 PO; PHEN60TA11 GT; POLY17PO44 PO; ROCPM1 IV; SER25 GT
[2022-03-07 21:10] VITALS: BP_SYST 157
[2022-03-07 22:27] LABS: BASOPHILS % (AUTO) 0.2 % (0.0-2.0); EOSINOPHILS # (AUTO) 0.9 K/uL (0.0-0.4); EOSINOPHILS % (AUTO) 8.1 % (0.0-4.0); LYMPHOCYTES % (AUTO) 9.2 % (20.5-51.5); MEAN CORPUSCULAR HEMOGLOBIN 29 pg (27-31); MEAN CORPUSCULAR HGB CONC 32 % (32-36); MEAN CORPUSCULAR VOLUME 89 fL (79.0-98.0); MONOCYTES % (AUTO) 9.1 % (1.7-9.3); NEUTROPHILS # (AUTO) 7.7 K/uL (1.8-7.7); NEUTROPHILS % (AUTO) 73.4 % (40.0-70.0); PLATELET COUNT (AUTO) 383 K/uL (130-430); RED BLOOD CELL COUNT(AUTO) 2.33 MIL/uL (4.2-6.2); RED CELL DISTRIBUTION WIDTH 20.8 % (9.0-15.0); WHITE BLOOD COUNT (AUTO) 10.5 K/uL (4.8-10.8)
[2022-03-07 22:42] LABS: HEMATOCRIT 20.8 % (36-54); HEMOGLOBIN 6.6 g/dL (14.0-18.0)
[2022-03-07 23:12] LABS: CALCIUM 9.9 mg/dL (8.4-11.0); CREATININE 0.76 mg/dL (0.55-1.30); TOTAL BILIRUBIN 0.4 mg/dL (0.0-1.0)
[2022-03-07 23:13] LABS: ALBUMIN 1.6 g/dL (3.4-4.8)
[2022-03-07 23:46] LABS: INR 1.1 (0.80-1.20); PROTHROMBIN TIME 11.3 SECS (9.5-12.5)
[2022-03-08] VITALS (8 sets, daily range): BP systolic 93–117
[2022-03-08] MEDS ORDERED: NS 500 ML IV ONE
[2022-03-08] MEDS ORDERED: PIPERACILLIN/TAZO 3.375 GM in NS 50 ML IV ONE (00:15)
[2022-03-08] MEDS ORDERED: VANCOMYCIN HCL 1,000 MG in NS 250 ML IV ONE (00:15)
[2022-03-08] MEDS ORDERED: VANCOMYCIN HCL 1000 MG/VIAL IV ONE (01:31)
[2022-03-08] MEDS ORDERED: PIPERACILLIN/TAZOBACTAM 3.375 GM/VIAL (ZOSYN) IV ONE (01:31)
[2022-03-08 06:53] LABS: BASOPHILS % (AUTO) 0.4 % (0.0-2.0); EOSINOPHILS # (AUTO) 0.6 K/uL (0.0-0.4); EOSINOPHILS % (AUTO) 5.5 % (0.0-4.0); LYMPHOCYTES # (AUTO) 1.2 K/uL (1.0-5.5); MEAN CORPUSCULAR HEMOGLOBIN 29 pg (27-31); MEAN CORPUSCULAR HGB CONC 33 % (32-36); MEAN CORPUSCULAR VOLUME 89 fL (79.0-98.0); MONOCYTES # (AUTO) 1.1 K/uL (0.0-1.0); MONOCYTES % (AUTO) 10.2 % (1.7-9.3); NEUTROPHILS # (AUTO) 7.9 K/uL (1.8-7.7); NEUTROPHILS % (AUTO) 72.9 % (40.0-70.0); PLATELET COUNT (AUTO) 376 K/uL (130-430); RED BLOOD CELL COUNT(AUTO) 2.29 MIL/uL (4.2-6.2); RED CELL DISTRIBUTION WIDTH 20.1 % (9.0-15.0); WHITE BLOOD COUNT (AUTO) 10.9 K/uL (4.8-10.8)
[2022-03-08 07:55] LABS: CALCIUM 8.9 mg/dL (8.4-11.0); CREATININE 0.81 mg/dL (0.55-1.30)
[2022-03-08 08:00] LABS: ALBUMIN 1.7 g/dL (3.4-4.8); TOTAL BILIRUBIN 0.5 mg/dL (0.0-1.0)
[2022-03-08 08:43] LABS: HEMATOCRIT 20.4 % (36-54); HEMOGLOBIN 6.7 g/dL (14.0-18.0)
[2022-03-08] MEDS ORDERED: DOCUSATE SODIUM 100 MG CAPSULE PO PRN (09:30)
[2022-03-08] MEDS ORDERED: LORazepam 2 MG/ML VIAL IVP PRN (09:30)
[2022-03-08] MEDS ORDERED: MAGNESIUM SULFATE 50 ML IV PRN (09:30)
[2022-03-08] MEDS ORDERED: MORPHINE 2 MG/ML INJ. SYRINGE IVP PRN ×2 (09:30)
[2022-03-08] MEDS ORDERED: ZOLPIDEM TARTRATE 5 MG TABLET PO PRN (09:30)
[2022-03-08] MEDS ORDERED: POTASSIUM CHLORIDE 20 MEQ TAB.PRT.SR PO PRN (09:30)
[2022-03-08] MEDS ORDERED: ONDANSETRON HCL 4 MG/2 ML VIAL IVP PRN (09:30)
[2022-03-08] MEDS: 0.45% NS 500 ML IV SCH ×3 (09:30→19:45)
[2022-03-08] MEDS ORDERED: NALOXONE HCL 0.4 MG/ML AMP (NARCAN) IVP PRN ×3 (09:30)
[2022-03-08] MEDS ORDERED: MUPIROCIN 2% TOPICAL OINTMENT 22 GM NS PRN (09:30)
[2022-03-08 09:51] LABS: TOTAL IRON BIND. CAPACITY 120 ug/dL (250-450)
[2022-03-08] MEDS: ACETAMINOPHEN 325 MG TABLET PO PRN (10:22)
[2022-03-08] MEDS: HYDROcodone/ACETAMIN 5-325 MG TAB (NORCO/ VICODIN) PO SCH ×2 (10:22→17:24)
[2022-03-08] MEDS: VANCOMYCIN HCL 750 MG in NS 250 ML IV SCH ×2 (11:02→23:25)
[2022-03-08] MEDS: LORazepam 1 MG TABLET GT SCH ×3 (13:01→23:25)
[2022-03-08] MEDS: PIPERACILLIN/TAZO 3.375/DEX-IS 50 ML IV SCH ×2 (13:01→17:28)
[2022-03-08] MEDS ORDERED: ACETAMINOPHEN 325 MG TABLET GT ONE (13:45)
[2022-03-08] MEDS: MIDODRINE HCL 5 MG TABLET (PROAMATINE) GT SCH ×2 (14:35→21:53)
[2022-03-08] MEDS ORDERED: DIPHENHYDRAMINE INJ 50 MG/ML VIAL IVP ONE (17:15)
[2022-03-08] MEDS ORDERED: IPRATROPIUM/ALBUTEROL SULFATE 3 ML AMPUL.NEB (DUONEB) INH PRN (17:15)
[2022-03-08] MEDS: QUEtiapine FUMARATE 25 MG TABLET GT SCH (21:52)
[2022-03-08] MEDS: POLYETHYLENE GLYCOL 3350, 17 GM/ POWD.PACK PO SCH (21:53)
[2022-03-08] MEDS: DOCUSATE SODIUM 100 MG CAPSULE PO SCH (21:53)
[2022-03-09] MEDS: PIPERACILLIN/TAZO 3.375/DEX-IS 50 ML IV SCH ×4 (00:52→17:33)
[2022-03-09 01:00] VITALS: BP_SYST 106
[2022-03-09] MEDS: ACETAMINOPHEN 325 MG TABLET PO PRN (01:22)
[2022-03-09] MEDS: HYDROcodone/ACETAMIN 5-325 MG TAB (NORCO/ VICODIN) PO SCH ×3 (01:22→17:17)
[2022-03-09] MEDS: LORazepam 1 MG TABLET GT SCH ×3 (06:13→17:17)
[2022-03-09 06:22] LABS: XHEMOGLOBIN A1CX 5.4 % (4.8-5.6)
[2022-03-09 08:20] VITALS: BP_SYST 117
[2022-03-09] MEDS: POLYETHYLENE GLYCOL 3350, 17 GM/ POWD.PACK PO SCH ×2 (08:22→20:55)
[2022-03-09] MEDS: ASCORBIC ACID 500 MG TABLET GT SCH (08:23)
[2022-03-09] MEDS: MIDODRINE HCL 5 MG TABLET (PROAMATINE) GT SCH ×3 (08:23→20:55)
[2022-03-09] MEDS: QUEtiapine FUMARATE 25 MG TABLET GT SCH ×2 (08:23→20:55)
[2022-03-09] MEDS: DOCUSATE SODIUM 100 MG CAPSULE PO SCH ×2 (08:24→20:55)
[2022-03-09 08:50] LABS: BILIRUBIN,URINE NEGATIVE (NEGATIVE); BLOOD, URINE 2+ (NEGATIVE); CLARITY/URINE CLEAR (CLEAR); COLOR,URINE YELLOW (YELLOW); GLUCOSE,URINE NEGATIVE (NEGATIVE); KETONES,URINE NEGATIVE (NEGATIVE); LEUKOCYTE ESTERASE ,URINE TRACE (NEGATIVE); NITRITE, URINE NEGATIVE (NEGATIVE); PROTEIN URINE 1+ (NEGATIVE); UROBILINOGEN,URINE 0.2 (0.2-1.0)
[2022-03-09 08:55] LABS: BASOPHILS % (AUTO) 0.3 % (0.0-2.0); EOSINOPHILS # (AUTO) 0.8 K/uL (0.0-0.4); EOSINOPHILS % (AUTO) 9.5 % (0.0-4.0); HEMATOCRIT 23.7 % (36-54); HEMOGLOBIN 7.9 g/dL (14.0-18.0); LYMPHOCYTES # (AUTO) 0.8 K/uL (1.0-5.5); LYMPHOCYTES % (AUTO) 9.4 % (20.5-51.5); MEAN CORPUSCULAR HEMOGLOBIN 29 pg (27-31); MEAN CORPUSCULAR HGB CONC 33 % (32-36); MEAN CORPUSCULAR VOLUME 88 fL (79.0-98.0); MONOCYTES # (AUTO) 0.6 K/uL (0.0-1.0); MONOCYTES % (AUTO) 7.2 % (1.7-9.3); NEUTROPHILS # (AUTO) 6.5 K/uL (1.8-7.7); NEUTROPHILS % (AUTO) 73.6 % (40.0-70.0); PLATELET COUNT (AUTO) 387 K/uL (130-430); RED BLOOD CELL COUNT(AUTO) 2.69 MIL/uL (4.2-6.2); RED CELL DISTRIBUTION WIDTH 18.7 % (9.0-15.0); WHITE BLOOD COUNT (AUTO) 8.9 K/uL (4.8-10.8)
[2022-03-09 08:57] LABS: CALCIUM 9.6 mg/dL (8.4-11.0); CREATININE 0.98 mg/dL (0.55-1.30)
[2022-03-09] MEDS: 0.45% NS 1,000 ML IV SCH ×2 (09:30→19:42)
[2022-03-09] MEDS: VANCOMYCIN HCL 750 MG in NS 250 ML IV SCH ×2 (10:02→22:30)
[2022-03-09 10:17] LABS: BACTERIA,URINE FEW /HPF (None Seen)
[2022-03-09] MEDS: FERROUS SULFATE 300 MG/5 ML UDC GT SCH ×2 (11:10→20:55)
[2022-03-09 12:04] VITALS: BP_SYST 97
[2022-03-09] MEDS: FLUCONAZOLE 200 mg/ NS 100 ML IV SCH (12:41)
[2022-03-09 15:49] VITALS: BP_SYST 90
[2022-03-09 20:42] VITALS: BP_SYST 91
[2022-03-10] VITALS (7 sets, daily range): BP systolic 95–114
[2022-03-10] MEDS: PIPERACILLIN/TAZO 3.375/DEX-IS 50 ML IV SCH ×4 (00:55→18:36)
[2022-03-10] MEDS: HYDROcodone/ACETAMIN 5-325 MG TAB (NORCO/ VICODIN) PO SCH ×3 (01:05→17:30)
[2022-03-10] MEDS: 0.45% NS 1,000 ML IV SCH ×2 (04:46→15:10)
[2022-03-10] MEDS: LORazepam 1 MG TABLET GT SCH ×4 (06:18→18:00)
[2022-03-10 06:49] LABS: CALCIUM 8.9 mg/dL (8.4-11.0); CREATININE 0.83 mg/dL (0.55-1.30)
[2022-03-10 07:59] LABS: BASOPHILS % (AUTO) 0.2 % (0.0-2.0); EOSINOPHILS # (AUTO) 0.9 K/uL (0.0-0.4); EOSINOPHILS % (AUTO) 12.7 % (0.0-4.0); LYMPHOCYTES % (AUTO) 15.4 % (20.5-51.5); MEAN CORPUSCULAR HEMOGLOBIN 29 pg (27-31); MEAN CORPUSCULAR HGB CONC 33 % (32-36); MEAN CORPUSCULAR VOLUME 89 fL (79.0-98.0); MONOCYTES # (AUTO) 0.7 K/uL (0.0-1.0); MONOCYTES % (AUTO) 10.9 % (1.7-9.3); NEUTROPHILS # (AUTO) 4.1 K/uL (1.8-7.7); NEUTROPHILS % (AUTO) 60.8 % (40.0-70.0); PLATELET COUNT (AUTO) 330 K/uL (130-430); RED BLOOD CELL COUNT(AUTO) 2.13 MIL/uL (4.2-6.2); RED CELL DISTRIBUTION WIDTH 18.7 % (9.0-15.0); WHITE BLOOD COUNT (AUTO) 6.8 K/uL (4.8-10.8)
[2022-03-10 08:28] LABS: HEMOGLOBIN 6.2 g/dL (14.0-18.0)
[2022-03-10] MEDS: QUEtiapine FUMARATE 25 MG TABLET GT SCH (09:50)
[2022-03-10] MEDS: MIDODRINE HCL 5 MG TABLET (PROAMATINE) GT SCH ×2 (09:50→15:09)
[2022-03-10] MEDS: POLYETHYLENE GLYCOL 3350, 17 GM/ POWD.PACK PO SCH (09:50)
[2022-03-10] MEDS: FERROUS SULFATE 300 MG/5 ML UDC GT SCH (09:50)
[2022-03-10] MEDS: DOCUSATE SODIUM 100 MG CAPSULE PO SCH (09:51)
[2022-03-10] MEDS: ASCORBIC ACID 500 MG TABLET GT SCH (09:51)
[2022-03-10] MEDS ORDERED: VANCOMYCIN HCL 500 MG in NS 100 ML IV SCH (11:00)
[2022-03-10] MEDS: FLUCONAZOLE 200 mg/ NS 100 ML IV SCH (13:12)
== END 2022-03-10 21:40 | DRG 720 ==
LOC: SED 21:04 → SMU 03-08 02:16 → STU 03-08 04:56
PROVIDERS: ADMIT General Practice; ATTEND General Practice
PROC: 30233N1 Transfusion of Nonautologous Red Blood Cells into Peripheral Vein, Percutaneous Approach (ICD-10-PCS; principal; 2022-03-08)
PROC: 5A1935Z Respiratory Ventilation, Less than 24 Consecutive Hours (ICD-10-PCS; 2022-03-08)
DX: A41.9 Sepsis, unspecified organism (principal); E43 Unspecified severe protein-calorie malnutrition; L89.153 Pressure ulcer of sacral region, stage 3; R53.2 Functional quadriplegia; J96.10 Chronic respiratory failure, unspecified whether with hypoxia or hypercapnia; E87.1 Hypo-osmolality and hyponatremia; D63.8 Anemia in other chronic diseases classified elsewhere; M00.9 Pyogenic arthritis, unspecified; Z93.0 Tracheostomy status; Z99.11 Dependence on respirator [ventilator] status; Z68.1 Body mass index [BMI] 19.9 or less, adult; R13.10 Dysphagia, unspecified; N18.9 Chronic kidney disease, unspecified; M86.9 Osteomyelitis, unspecified; G40.909 Epilepsy, unspecified, not intractable, without status epilepticus; B95.62 Methicillin resistant Staphylococcus aureus infection as the cause of diseases classified elsewhere; D50.9 Iron deficiency anemia, unspecified; Z20.822 Contact with and (suspected) exposure to COVID-19; Z74.01 Bed confinement status; Z86.73 Personal history of transient ischemic attack (TIA), and cerebral infarction without residual deficits; Z93.3 Colostomy status; Z95.0 Presence of cardiac pacemaker
CPT/HCPCS: 36415; 71045; 76376; 80048; 80053; 80202; 81000; 82272; 82607; 82728; 82746; 83036; 83540; 83550; 83605; 83735; 84484; 85025; 85384; 85610-TC; 85730-TC; 86886; 86900; 86901; 86920; 87040; 87070-TC; 87081; 87186-TC; 87205-TC; 93005; 94002; 94003; 94640; 94760; 96365; 96366; 96367; 99285; G0378; J1200; J1450; J2543; J3370; J7050; P9021